=== PATIENT | female | born 1935 | race Caucasian/White ===

== ENCOUNTER 2017-03-15 09:49 | Emergency (ER) | payer MEDICARE, OTHER ==
[~2017-03-15] VITALS: Ht 167.6 cm; Wt 75.4 kg
[~2017-03-15 09:49] MED LIST: Z.0.NO CURRENT MEDS
[2017-03-15 09:52] VITALS: BP 132/63; PULSE 71; RESP 16; TEMP 97.6; O2SAT 97
[2017-03-15] MEDS ORDERED: TRAZ50TA12 PO (09:58)
[2017-03-15] MEDS ORDERED: CITA20TA4 PO (09:58)
[2017-03-15] MEDS ORDERED: VIMP150T PO (09:58)
[2017-03-15] MEDS ORDERED: PRAV20TA2 PO (09:58)
[2017-03-15] MEDS ORDERED: ONDANSETRON HCL 4 MG/2 ML VIAL IVP ONE (10:15)
[2017-03-15] MEDS ORDERED: MORPHINE SULFATE 4 MG/ML INJ IV PUSH ONE (10:15)
[2017-03-15] MEDS ORDERED: KETOROLAC TROMETHAMINE 30 MG/ML (IVP) VIAL IVP ONE (10:15)
--- NOTE | 2017-03-15 10:31 | PD ---
HPI Chief Complaint: Musculoskeletal Complaint Time Seen by Provider: 09:59 Travel History International Travel<30 days: No Contact w/Intl Traveler<30days: No Traveled to known affect area: No History of Present Illness HPI 81-year-old female presents the emergency department with her status post trip and fall this morning in her kitchen. She states she tripped over her shoelaces and fell forward landing on her right wrist and hand. She is now complaining of right wrist pain, and right shoulder pain. Pain is 8 out of 10. She denies loss of consciousness. Her head, neck pain, thoracic pain, or lower extremity pain. Patient denies numbness or tingling. She is able to wiggle her fingers and head machine feeder with the right hand without difficulty. Patient has no known drug allergies. PFSH Past Medical History Cancer: Yes (CERVICAL AND SKIN) ?: Not Past Surgical History Abdominal Surgery: Yes (BOWEL OBSTUCTION) Cholecystectomy: Yes Hysterectomy: Yes Social History Alcohol Use: No Tobacco Use: No Allergies-Medications (Allergen,Severity, Reaction): Coded Allergies: No Known Allergies (Verified Allergy, Mild, 03/15/17) Reported Meds & Prescriptions Reported Meds & Active Scripts Active Reported Trazodone (Trazodone HCl) 50 Mg Tab 50 Mg PO HS Pravastatin 20 Mg Tab 20 Mg PO HS Citalopram (Citalopram Hydrobromide) 20 Mg Tab 20 Mg PO DAILY Vimpat (Lacosamide) 150 Mg Tab 150 Mg PO BID Review of Systems Except as stated in HPI: all other systems reviewed are Neg General / Constitutional: No: Fever Eyes: No: Visual changes HENT: No: Headaches Cardiovascular: No: Chest Pain or Discomfort Respiratory: No: Shortness of Breath Gastrointestinal: No: Abdominal Pain Genitourinary: No: Dysuria Musculoskeletal: Positive: Arthralgias, Limited ROM, Pain Skin: No Rash Neurologic: No: Weakness Psychiatric: No: Depression Endocrine: No: Polydipsia Hematologic/Lymphatic: No: Easy Bruising Physical Exam Narrative GENERAL: Patient appears in moderate distress. SKIN: Warm and dry. Normal color. Normal turgor. HEAD: Atraumatic. Normocephalic. EYES: Pupils equal and round. No scleral icterus. No injection or drainage. ENT: No nasal bleeding or discharge. Mucous membranes pink and moist. No dental injury. Pharynx is clear. Airway is patent. NECK: Trachea midline. No bony tenderness or step-off. Range of motion is full without tenderness. CARDIOVASCULAR: Regular rate and rhythm. RESPIRATORY: No accessory muscle use. Clear to auscultation. Breath sounds equal bilaterally. MUSCULOSKELETAL: Extremities without clubbing, cyanosis, or edema. No obvious deformities. Capillary refill is brisk in the right upper extremity. Maintenance Person strength is normal. Patient has pain over the right volar wrist, elbow seems to be intact and nontender. Patient has pain along the right upper arm and shoulder consistent with probable fracture. Exam is limited secondary to patient's pain. NEUROLOGICAL: Awake and alert. No obvious cranial nerve deficits. Motor grossly within normal limits. Five out of 5 muscle strength in the arms and legs. Normal speech. PSYCHIATRIC: Appropriate mood and affect; insight and judgment normal. Data Data Last Documented VS Vital Signs Date Time Temp Pulse Resp B/P (MAP) Pulse Ox O2 Delivery O2 Flow Rate FiO2 03/15/17 11:14 63 18 106/55 (72) 100 Room Air 03/15/17 09:52 97.6 Orders Orders Wrist, Complete ([id number]) (03/15/17 10:15) Ice/Cold Pack (03/15/17 10:15) Iv Access Insert/Monitor (03/15/17 10:15) Ecg Monitoring (03/15/17 10:15) Oximetry (03/15/17 10:15) NPO (03/15/17 10:15) Morphine Inj (Morphine Inj) (03/15/17 10:15) Ondansetron Inj (Zofran Inj) (03/15/17 10:15) Sodium Chloride 0.9% Flush (Ns Flush) (03/15/17 10:15) Ketorolac Inj (Toradol Inj) (03/15/17 10:15) Complete Blood Count With Diff (03/15/17 10:24) Comprehensive Metabolic Panel (03/15/17 10:24) Prothrombin Time / Inr (Pt) (03/15/17 10:24) Act Partial Throm Time (Ptt) (03/15/17 10:24) Chest, Single Ap (03/15/17 10:24) Shoulder, Limited(2vws) (03/15/17 10:15) Splint Or Brace Apply/Monitor (03/15/17 11:45) Splint Or Brace Apply/Monitor (03/15/17 11:45) Labs Laboratory Tests Test 03/15/17 10:40 White Blood Count 15.2 TH/MM3 Red Blood Count 4.35 MIL/MM3 Hemoglobin 12.3 GM/DL Hematocrit 38.8 % Mean Corpuscular Volume 89.3 FL Mean Corpuscular Hemoglobin 28.3 PG Mean Corpuscular Hemoglobin Concent 31.7 % Red Cell Distribution Width 13.1 % Platelet Count 187 TH/MM3 Mean Platelet Volume 7.9 FL Neutrophils (%) (Auto) 69.6 % Lymphocytes (%) (Auto) 18.4 % Monocytes (%) (Auto) 6.9 % Eosinophils (%) (Auto) 0.8 % Basophils (%) (Auto) 4.3 % Neutrophils # (Auto) 10.5 TH/MM3 Lymphocytes # (Auto) 2.8 TH/MM3 Monocytes # (Auto) 1.1 TH/MM3 Eosinophils # (Auto) 0.1 TH/MM3 Basophils # (Auto) 0.7 TH/MM3 CBC Comment DIFF FINAL Differential Comment Prothrombin Time 11.0 SEC Prothromb Time International Ratio 1.1 RATIO Activated Partial Thromboplast Time 20.4 SEC Blood Urea Nitrogen 15 MG/DL Creatinine 0.65 MG/DL Random Glucose 146 MG/DL Total Protein 7.1 GM/DL Albumin 3.7 GM/DL Calcium Level 8.6 MG/DL Alkaline Phosphatase 48 U/L Aspartate Amino Transf (AST/SGOT) 38 U/L Alanine Aminotransferase (ALT/SGPT) 40 U/L Total Bilirubin 0.4 MG/DL Sodium Level 133 MEQ/L Potassium Level 4.3 MEQ/L Chloride Level 102 MEQ/L Carbon Dioxide Level 22.9 MEQ/L Anion Gap 8 MEQ/L Estimat Glomerular Filtration Rate 88 ML/MIN [facility] Medical Decision Making Medical Screen Exam Complete: Yes Emergency Medical Condition: Yes Differential Diagnosis Trip and fall. Wrist fracture. Shoulder fracture. Sprain. Contusion. Narrative Course Patient is felt to be medically stable at time of exam. Patient last ate last evening. IV access is obtained and labs are obtained including CBC, CMP, and PT PTT and INR. Patient is given 2 mg morphine IV, 4 mg Zofran IV, and 30 mg Toradol IV. Chest x-ray is ordered as well as x-ray of the right wrist and right shoulder. Right shoulder x-ray shows a proximal surgical neck humerus fracture with compaction. This is reviewed with Dr. Aaron. Right wrist films show subtle nondisplaced fracture of the radius. This is also reviewed with Dr. Aaron. Call was placed to Dr. Ash, the orthopedist safety consultant. Patient is placed in a sugar tong splint and shoulder immobilizer sling. Patient will be given Lortab 5/325 one every 6 hours when necessary pain #20. Patient is ice to areas frequently. Patient should call Dr. Ross's office for follow-up within the next week. Diagnosis Primary Impression: Fall Qualified Codes: W19.XXXA - Unspecified fall, initial encounter Additional Impressions: Right wrist fracture Qualified Codes: S62.101A - Fracture of unspecified carpal bone, right wrist, initial encounter for closed fracture Comminuted right humeral fracture Qualified Codes: S42.421A - Displaced comminuted supracondylar fracture without intercondylar fracture of right humerus, initial encounter for closed fracture Referrals: Dionicio Ross MD Patient Instructions: Arm Fracture in Adults (ED), General Instructions, How to Use a Sling (GEN), Splint Care (ED), Wrist Fracture in Adults (DC) Additional Instructions: Right shoulder x-ray shows a proximal surgical neck humerus fracture with compaction. This is reviewed with Dr. Aaron. Right wrist films show subtle nondisplaced fracture of the radius. This is also reviewed with Dr. Aaron. Call was placed to Dr. Ash, the orthopedist safety consultant. Patient is placed in a sugar tong splint and shoulder immobilizer sling. Patient will be given Lortab 5/325 one every 6 hours when necessary pain #20. Patient is ice to areas frequently. Patient should call Dr. Ross's office for follow-up within the next week. Med/Other Pt SpecificInfo: Prescription(s) given Disposition: 01 DISCHARGE HOME Condition: Stable Jesús Carrizales Mar 15, 2017 10:31
[2017-03-15 10:52] LABS: AUTOMATED NEUTROPHIL # 10.5 TH/MM3 (1.8-7.7); BASOPHIL # 0.7 TH/MM3 (0-0.2); BASOPHIL % 4.3 % (0.0-2.0); EOSINOPHIL # 0.1 TH/MM3 (0-0.4); EOSINOPHIL % 0.8 % (0.0-4.0); HEMATOCRIT 38.8 % (35.0-46.0); HEMO FLAGS DIFF FINAL; LYMPH % 18.4 % (9.0-44.0); LYMPHOCYTE # 2.8 TH/MM3 (1.0-4.8); MEAN CELL VOLUME 89.3 FL (80.0-100.0); MEAN CORPUSCULAR HEMOGLOBIN 28.3 PG (27.0-34.0); MEAN CORPUSCULAR HGB CONC 31.7 % (32.0-36.0); MONO % 6.9 % (0.0-8.0); NEUT % 69.6 % (16.0-70.0); PLATELET COUNT 187 TH/MM3 (150-450); RED BLOOD COUNT 4.35 MIL/MM3 (4.00-5.30); RED CELL DISTRIBUTION WIDTH 13.1 % (11.6-17.2); WHITE BLOOD COUNT 15.2 TH/MM3 (4.0-11.0)
[2017-03-15 11:03] LABS: CHLORIDE 102 MEQ/L (98-107); POTASSIUM 4.3 MEQ/L (3.5-5.1); SODIUM (NA) 133 MEQ/L (136-145)
[2017-03-15 11:06] LABS: ANION GAP 8 MEQ/L (5-15); BICARBONATE 22.9 MEQ/L (21.0-32.0)
[2017-03-15 11:07] LABS: BLOOD UREA NITROGEN 15 MG/DL (7-18)
[2017-03-15 11:08] LABS: APTT (PATIENT) 20.4 SEC (24.3-30.1); INTERNATIONAL NORMALIZED RATIO 1.1 RATIO
[2017-03-15] MEDS: SODIUM CHLORIDE 0.9% FLUSH 10 ML FLUSH IV FLUSH PRN ×2 (11:08→12:16)
[2017-03-15 11:09] LABS: ALT (GPT) 40 U/L (10-53)
[2017-03-15 11:10] LABS: AST (GOT) 38 U/L (15-37); GLOMERULAR FILTRATION RATE 88 ML/MIN (>89)
[2017-03-15 11:11] LABS: TOTAL BILIRUBIN ADULT 0.4 MG/DL (0.2-1.0)
[2017-03-15 11:12] LABS: ALKALINE PHOSPHATASE 48 U/L (45-117)
[2017-03-15 11:13] VITALS: O2SAT 92
[2017-03-15 11:14] VITALS: BP 106/55; PULSE 63; RESP 18; O2SAT 100
--- NOTE | 2017-03-15 11:33 | RADRPT ---
EXAM DATE/TIME: 03/15/2017 10:40 [facility] COMPARISON: SHOULDER RIGHT LTD (2VWS), March 15, 2017, 10:23. INDICATIONS : Short of breath. MEDICAL HISTORY : Carcinoma, cervical and skin SURGICAL HISTORY : Cholecystectomy. ENCOUNTER: Initial ACUITY: 1 day PAIN SCORE: 0/10 LOCATION: chest FINDINGS: Single AP view of the chest demonstrates a normal-sized cardiac silhouette. No effusion, consolidatio n, or pneumothorax is identified. There is a right proximal humeral metastases fracture. CONCLUSION: 1. No acute cardiopulmonary abnormality is identified. 2. Right proximal humeral neck fracture. Bob Wu MD on March 15, 2017 at 11:31 Board Certified Radiologist. This report was verified electronically.
[2017-03-15] MEDS ORDERED: HYDR-3516 PO (11:53)
--- NOTE | 2017-03-15 11:56 | RADRPT ---
EXAM DATE/TIME: 03/15/2017 10:23 [facility] COMPARISON: No previous studies available for comparison. INDICATIONS : Right shoulder pain post fall. MEDICAL HISTORY : Carcinoma, cervical and skin SURGICAL HISTORY : Cholecystectomy. ENCOUNTER: Initial ACUITY: 1 day PAIN SCORE: 10/10 LOCATION: Right shoulder FINDINGS: 2 views of the right shoulder demonstrate a transverse fracture through the proximal humeral neck. Fr acture slightly impacted and displaced. Acromioclavicular joint is intact with osteoarthritis. No rib fracture is identified. No soft tissue abnormality is identified. CONCLUSION: There is an acute mildly displaced proximal right humeral neck fracture. Bob Wu MD on March 15, 2017 at 11:46 Board Certified Radiologist. This report was verified electronically.
--- NOTE | 2017-03-15 12:05 | RADRPT ---
EXAM DATE/TIME: 03/15/2017 10:23 [facility] COMPARISON: No previous studies available for comparison. INDICATIONS : Right wrist pain post fall MEDICAL HISTORY : Carcinoma, cervical and skin SURGICAL HISTORY : Cholecystectomy. ENCOUNTER: Initial ACUITY: 1 day PAIN SCORE: 6/10 LOCATION: Right wrist FINDINGS: Three view examination of the right wrist demonstrates no soft tissue swelling, dislocation, or fract ure. The carpal bones are in normal alignment. The joint spaces are maintained. Bony mineralizatio n is normal. There is osteoarthritis involving the first carpometacarpal compartment. CONCLUSION: 1. There is no evidence of acute fracture. Vlad Carreon MD on March 15, 2017 at 11:54 Board Certified Radiologist. This report was verified electronically.
[2017-03-15] MEDS ORDERED: MORPHINE SULFATE 2 MG/ML INJ IV PUSH ONE (12:15)
[2017-03-15 13:42] VITALS: BP 123/87
--- NOTE | 2017-03-15 14:11 | RADRPT ---
EXAM DATE/TIME: 03/15/2017 13:28 [facility] COMPARISON: SHOULDER RIGHT LTD (2VWS), March 15, 2017, 10:23. INDICATIONS : Trauma, fall. Right shoulder fracture. RADIATION DOSE: 19.54 CTDIvol (mGy) MEDICAL HISTORY : Cervical cancer. SURGICAL HISTORY : Cholecystectomy. Hysterectomy. ENCOUNTER: Initial ACUITY: 1 day PAIN SCALE: 9/10 LOCATION: Right shoulder. TECHNIQUE: Volumetric scanning of the shoulder was performed. Using automated exposure control and adjustment o f the mA and/or kV according to patient size, radiation dose was kept as low as reasonably achievable to obtain optimal diagnostic quality images. DICOM format image data is available electronically f or review and comparison. FINDINGS: There is a comminuted fracture of the proximal humeral surgical neck with anterior and medial displac ement of the distal fragment by approximately 10 mm. Fracture lines extend into the humeral head in a t least 2 locations. Scapula is intact and right clavicle is intact. No rib fracture is seen. There is edema in the surrounding soft tissues. Muscles demonstrate no acute finding. CONCLUSION: There is a comminuted displaced fracture of the proximal right humeral surgical neck with approximate ly 10 mm of medial and anterior displacement of the distal fragment. Fracture lines extend into the h umeral head in at least 2 locations. Bob Wu MD on March 15, 2017 at 14:06 Board Certified Radiologist. This report was verified electronically.
== END 2017-03-15 13:43 | disposition home or self-care (01) ==
LOC: PHEFT 09:49
DX: S62.101A Fracture of unspecified carpal bone, right wrist, initial encounter for closed fracture (principal); S42.351A Displaced comminuted fracture of shaft of humerus, right arm, initial encounter for closed fracture; W01.0XXA Fall on same level from slipping, tripping and stumbling without subsequent striking against object, initial encounter; Y92.000 Kitchen of unspecified non-institutional (private) residence as the place of occurrence of the external cause
CPT/HCPCS: 71010; 73030; 73110; 73200; 80053; 85025; 85610; 85730; 96374; 96375; 99285; J1885; J2270; J2405